=== PATIENT | male | born 1960 | race Caucasian/White ===

== ENCOUNTER 2016-07-22 20:41 | Emergency (ER) | payer MEDICAID, MEDICARE, OTHER ==
[~2016-07-22] VITALS: Ht 175.3 cm; Wt 68.2 kg
[~2016-07-22 20:41] MED LIST: CMBV14.7IN INH; IBUP-1149 PO; PRI20 PO; QVAR80 INH; SMV40T PO; TRAM100T23 PO
[2016-07-22 20:53] VITALS: BP 118/74; PULSE 69; RESP 15; O2SAT 99
--- NOTE | 2016-07-22 23:39 | ED.REPORT ---
HPI-Trauma Minor / Fall Date of Service Jul 22, 2016 ED Provider: Dr. Jam Morel D.O. A 56 year old male with a history of inguinal hernia, asthma, ulcers, anxiety, and depression presents to the ED with right-sided mid back pain after a ground level fall at 17:45 this evening. The patient's car began sliding down his driveway so he ran in an attempt to catch it, but slipped on ice and fell backwards. His pain is exacerbated with movement and deep breathing. He also reports right arm pain. The patient did not hit his head or lose consciousness. He ambulated after the incident. Nursing Notes Stated Complaint: SLIP ON ICE/ BACK INJURY Chief Complaint: Back Pain or Injury Nursing Notes Reviewed: Yes Allergies: Coded Allergies: No Known Drug Allergies (Verified Allergy, Unknown, 07/22/16) Scheduled Beclomethasone-Expunged Drug, Do Not Renew! ([id number] Drug, Do Not Renew !) 80 Mcg Puff 7.3 INH 1 puff am and pm IBUPROFEN-Expunged Drug, Do Not Renew! (IBUPROFEN-Expunged Drug, Do Not Renew!) 600 Mg Tablet 300 MG PO BID Omeprazole-Expunged Drug, Do Not Renew! (Omeprazole-Expunged Drug, Do Not Renew! ) 20 Mg Capcr 20 MG PO DAILY Simvastatin-Expunged Drug, Choose New Med! (Simvastatin-Expunged Drug, Choose New Med!) 40 Mg Tablet 40 MG PO HS TRAMADOL -Expunged Drug, Do Not Renew! (TRAMADOL-Expunged Drug, Do Not Renew!) 100 Mg Tbmp.24hr 50 MG PO BID Scheduled PRN Albut/Ipratropium-Expunged Drug, Do Not Renew (Combivent-Expunged Drug, Do Not Renew!) 1 Puff Inhaler 2 PUFFS INH PRN General Time Seen by MD: 23:39 Chief Complaint Fall, Slipped Hx Obtained From: Patient Arrived By: Walk-in Onset Occurred: 5 - 8 hours ago Symptom Duration: Since onset Caused by: Accidental, Fall on ground, Slipped Context: Occurred at: Home injury Location: Back Quality: Painful Severity: Current: Moderate Severity: Maximum: Moderate Associated with: Denies: Fever, Headache, Loss of consciousness Exacerbated by: Movement, Deep breath Pertinent Negative: Relieved by nothing Context: Immunizations Unknown Recent Healthcare: No recent doctor visit Similar Sx Previous: Yes Past Medical History Past Medical History Inguinal hernia Asthma Pneumonia Ulcers Back injury Symptomatic hardwire in right leg Anxiety Depression Past Surgical History Hernia repair Hardware in: R leg, R arm, Pelvis, Face, Back, Neck Smoking History Current Every Day Smoker (7 per day) Social History Drug Use: THC Ambulatory Status Independent Review of Systems Constitutional: Denies: Fever Respiratory: Denies: Non-productive cough, Shortness of breath Musculoskeletal: Reports: Back pain, Extremity pain (Right arm) Neurologic: Denies: Change LOC, Headache, Problem walking Complete sys rev & neg: except as marked. Physical Exam Initial Vital Signs Vital Signs (First) Date Time Temp Pulse Resp B/P Pulse Ox O2 Delivery O2 Flow Rate FiO2 07/22/16 20:53 36.2 69 15 118/74 99 07/23/16 03:12 Room Air Initial VS: Reviewed Head / Eyes: Atraumatic, Normocephalic ENT: Conjunctiva normal, No scleral icterus Skin: Warm, Dry, No cyanosis Psychiatric: Mood/affect normal, Behavior normal, Normal thought content General/Constitutional: Awake, Alert, No acute distress Neck: Supple, Full range of motion, No midline vertebral tend Head / Eyes: Atraumatic, Normocephalic Respiratory / Chest: Breath sounds NL, Breath sounds = bilat, No respiratory distress Splinting with breathing Cardiovascular: Heart rate NL, Regular rhythm, Heart sounds NL, No murmurs Flank / Spine / Paraspinal: Positive: Thoracic spine tender... Upper Extremity / MS: Atraumatic, Inspection NL Lower Extremity / Pelvis / MS: Atraumatic, Inspection NL Neurologic: Oriented X3, Speech NL, No motor deficits, No sensory deficits Interpretation & Diagnostics CT THORACIC SPINE W/O CONTRAST: IMPRESSION: Slightly comminuted fracture of the right 10th rib, with nondisplaced fractures of the right eighth and seventh ribs. Healed left-sided rib fractures. No evidence of a fracture or subluxation of the thoracic spine. Degenerative changes as noted above. Transmitted to ED by Radiologist Lalit Sin M.D. at 07/23/2016 - 1:53:12 AM PST X-Ray Chest Interpretation Chest Xray Interpretation: Possible pulmonary nodule No infiltrates View: AP & lat Interpretation / Wet Read by: Wet read ED physician X-Ray Interpretation Xray Interpretation: Compression deformity of mid thoracic spine Exquisitely tender Study Performed: Thoracic spine 2 view Interpretation / Wet Read by: Wet read ED physician CT C-Spine Interpretation CONCLUSION: No evidence of a fracture or subluxation. Degenerative changes as described above. Transmitted to ED by Lalit Sin M.D. at 07/23/2016 - 1:48:20 AM PST Study type: CT no contrast Interpretation / Wet Read by: Interpret - Radiologist Re-Eval/Medical Decision Source of Hx: Old records Re-Evaluation/Progress : Time of Eval: 02:22 Patient Status: Condition improved Re-Evaluation/Progress Note: Discussed with patient x-ray and CT results, diagnosis, and plan for discharge. Follow-up and return to the ER instructions given. Patient agrees with plan for care and all questions were addressed. Counseled Regarding: Diagnosis, Need for follow-up, When/why to return to ED Discharge & Departure Impression: Primary Impression: Ribs, multiple fractures Encounter type: initial encounter Fracture type: closed Laterality: right Qualified Code: S22.41XA - Multiple fractures of ribs, right side, initial encounter for closed fracture Additional Impression: Contusion of back wall of thorax Encounter type: initial encounter Laterality: left Qualified Code: S20.222A - Contusion of left back wall of thorax, initial encounter Disposition: Home Discharge Condition All VS Reviewed: Yes Condition: Stable Patient Instructions: Contusions in Adults (DC), Rib Fracture (ED) Additional Instructions: Take one tylenol with codeine every 6-8 hours as needed for pain. Take Naprosyn twice daily as needed for moderate pain. Do not drive or drink alcohol or consume acetaminophen while taking the Tylenol with codeine. Set up a follow up with your DrDalila for next week. Return if any problems or any worsening symptoms. Do not drive tonight. Referrals: Eunice Barahona MD (PCP) Kamariibnoel Attestation Portions of this note were transcribed by Vilma Almazan. I, Dr. Morel, personally performed the history, physical exam, and medical decision-making; I reviewed and confirmed the accuracy of the information in the transcribed note. Signed by: Rama Hsu, 07/23/2016, 03:17 copies to: Eunice Barahona MD, Todd P DO Jul 22, 2016 23:39 VILMA ALMAZAN Jul 23, 2016 00:04
[2016-07-22] MEDS ORDERED: HYDROcodone-APAP 5-325 mg Tablet PO ONE (23:50)
[2016-07-23] MEDS ORDERED: Albuterol-Ipratropium 3 mL Inhalation Solution NEB ONE (00:30)
[2016-07-23] MEDS ORDERED: Codeine-APAP 30-300 mg Tablet PO ONE (00:30)
[2016-07-23 03:12] VITALS: BP 131/72; PULSE 93; RESP 19; O2SAT 100
--- NOTE | 2016-07-23 07:58 | DRSVH ---
PROCEDURE: X-RAY THORACIC SPINE, 2 VIEWS INDICATIONS: fall, mid back and pleuritic pain TECHNIQUE: 2 views of the thoracic spine were acquired. COMPARISON: None. FINDINGS: Bones: No fractures or dislocations. Convex right curvature the visualized lumbar spine is noted. No suspicious bony lesions. 12 pairs of ribs are noted, and appear intact where visualized. Multilevel degenerative disc disease is noted. Soft tissues: No paravertebral stripe thickening. IMPRESSION: No fracture. No acute osseous lesion. If symptoms and/or clinical suspicion for patholog y persists, evaluation with MRI may be helpful for further assessment. Dictated by: Kiah Dumont MD, PhD on 07/23/2016 at 7:55 Approved by: Kiah Dumont MD, PhD on 07/23/2016 at 7:55
--- NOTE | 2016-07-23 07:59 | DRSVH ---
PROCEDURE: X-RAY CHEST, TWO VIEWS ([id number]) INDICATIONS: fall, mid back and pleuritic pain TECHNIQUE: 2 views of the chest were acquired. COMPARISON: [facility], CT, CT THORACIC SPINE WO CON, 07/23/2016, 1:28. FINDINGS: Surgical changes and devices: None. Lungs and pleura: No pleural effusions or pneumothorax. Lungs are clear. Mediastinum: Mediastinal contours are normal. Heart size is normal. Bones and chest wall: Convex-right lumbar spine scoliosis is noted. No suspicious bony abnormalities. Multiple old left-sided rib fractures noted. Soft tissues appear unremarkable. IMPRESSION: No acute cardiopulmonary disease process. Dictated by: iKah Dumont MD, PhD on 07/23/2016 at 7:57 Approved by: Kiah Dumont MD, PhD on 07/23/2016 at 7:57
--- NOTE | 2016-07-23 14:13 | DRSVH ---
PROCEDURE: CT CERVICAL SPINE WITHOUT CONTRAST ([id number]) INDICATIONS: fall, pain, TECHNIQUE: Noncontrast 3 mm thick sections acquired from the skull base to the T4 level. Sagittal and coronal r eformats were then constructed. For radiation dose reduction, the following was used: automated exp osure control, adjustment of mA and/or kV according to patient size. COMPARISON: None. FINDINGS: Image quality: Excellent. Bones: There is an area of corticated fragment adjacent to the posterior aspect of the clinoid as wel l superior aspect of the dens. Visualized superior ribs are intact. Soft tissues: Prevertebral soft tissues are normal in thickness. No paravertebral hematomas. No ap ical pneumothoraces. IMPRESSION: 1. Corticated osseous fragment along the posterior clivus, appearing to be chronic. This is suspected to be related to degenerative change versus old injury. Dictated by: Edith Ware M.D. on 07/23/2016 at 14:11 Approved by: Edith Ware M.D. on 07/23/2016 at 14:11
--- NOTE | 2016-07-23 14:15 | DRSVH ---
PROCEDURE: CT THORACIC SPINE WITHOUT CONTRAST ([id number]) INDICATIONS: fall, pain, abnormal xrays TECHNIQUE: Noncontrast 3 mm thick sections acquired through the region of interest in the thoracic spine. Sagit verónica and coronal reformats were then constructed. For radiation dose reduction, the following was use d: automated exposure control. COMPARISON: [facility], CR, XR THORACIC SPINE 2VW, 07/23/2016, 0:04. FINDINGS: Image quality: Excellent. Bones: There is normal overall bony alignment. No acute vertebral body compression fractures. No s uspicious sclerotic or lytic bony lesions. Central spinal canal is of normal overall caliber. Old p osterior sixth, seventh and eighth rib fractures. Soft tissues: No paravertebral masses or hematomas. Visualized posteromedial lungs appear clear. IMPRESSION: 1. No visualized acute fracture. Dictated by: Edith Ware M.D. on 07/23/2016 at 14:13 Approved by: Edith Ware M.D. on 07/23/2016 at 14:13
== END 2016-07-23 03:13 | disposition home or self-care (01) ==
LOC: SED 20:41
DX: S22.41XA Multiple fractures of ribs, right side, initial encounter for closed fracture (principal); S20.222A Contusion of left back wall of thorax, initial encounter; W00.0XXA Fall on same level due to ice and snow, initial encounter; Y93.02 Activity, running; Y99.8 Other external cause status; Y92.014 Private driveway to single-family (private) house as the place of occurrence of the external cause; F17.210 Nicotine dependence, cigarettes, uncomplicated; F12.10 Cannabis abuse, uncomplicated; J45.909 Unspecified asthma, uncomplicated; Z87.828 Personal history of other (healed) physical injury and trauma; Z79.51 Long term (current) use of inhaled steroids
CPT/HCPCS: 71020; 72070; 72125; 72128; 94664; 99284; J7620